=== PATIENT | female | born 1980 | race Hispanic/Latino ===

== ENCOUNTER 2018-06-05 08:12 | Emergency (ER) | payer BC ==
[2018-06-05 08:39] LABS: APPEARANCE,URINE Clear (CLEAR); BILIRUBIN,URINE Negative (NEGATIVE); COLOR,URINE Yellow (YELLOW); GLUCOSE, URINE (UA) Negative (NEGATIVE); KETONES,URINE Negative (NEGATIVE); LEUKOCYTE ESTERASE ,URINE Moderate (NEGATIVE); NITRATE,URINE Negative (NEGATIVE); OCCULT BLOOD,URINE Negative (NEGATIVE); PH,URINE 6.5 (5.0-8.0); PROTEIN,URINE Negative (NEGATIVE); UROBILINOGEN,URINE 0.2 mg/dL (0.2-1.0)
[2018-06-05 08:46] LABS: BACTERIA,URINE Rare /HPF (None Seen); RBC,URINE 0-1 /HPF (0-1); SQUAMOUS EPITHELIAL CELL,UR Rare /HPF (0-2)
[2018-06-05 09:07] LABS: BASOPHILS % (AUTO) 0.3 % (0.0-5.0); EOSINOPHILS % (AUTO) 0.3 % (0.0-8.0); HEMATOCRIT 39.4 % (36-48); LYMPHOCYTES % (AUTO) 18.5 % (21.0-51.0); MEAN CORPUSCULAR HEMOGLOBIN 31.5 pg (27.0-33.0); MEAN CORPUSCULAR HGB CONC 34.6 g/dL (32.0-36.0); MEAN CORPUSCULAR VOLUME 91.1 fL (79-99); MONOCYTES % (AUTO) 4.9 % (3.0-13.0); PLATELET COUNT (AUTO) 208 K/uL (130-400); RED BLOOD CELL COUNT(AUTO) 4.33 MIL/uL (4.00-5.50); RED CELL DISTRIBUTION WIDTH 12.7 % (11.0-15.5); WHITE BLOOD COUNT (AUTO) 11.9 K/uL (4.8-10.8)
[2018-06-05 09:22] LABS: CREATININE 0.7 mg/dL (0.5-1.5); POTASSIUM 3.5 mmol/L (3.5-5.1)
[2018-06-05 09:29] LABS: ALBUMIN 3.3 g/dL (3.5-5.0); BILIRUBIN,TOTAL 0.6 mg/dL (0.2-1.0); TOTAL PROTEIN, SERUM 6.3 g/dL (6.0-8.3)
[2018-06-05] MEDS ORDERED: METOCLOPRAMIDE 10 MG/2 ML VIAL ONE (09:51)
[2018-06-05] MEDS ORDERED: SODIUM CHLORIDE 0.9% 1000ML 1,000 ML IV ONE (09:52)
[2018-06-05] MEDS ORDERED: ONDANSETRON HCL 4 MG/2 ML VIAL ONE (09:52)
[2018-06-05 10:08] LABS: INR 0.94 (0.85-1.15); PARTIAL THROMBOPLASTIN TIME 28.5 SEC (26.3-35.5); PROTHROMBIN TIME 9.9 SEC (9.6-11.6)
[2018-06-05] MEDS ORDERED: METRONIDAZOLE 500MG/100ML BAG 100 ML ONE (12:21)
[2018-06-05] MEDS ORDERED: MORPHINE SULFATE 2 MG/ML 1ML SYG ONE (12:22)
[2018-06-05] MEDS ORDERED: KETOROLAC TROMETHAMINE 30MG/ML ONE (13:04)
== END 2018-06-05 14:28 | disposition home or self-care (01) ==
LOC: EDH 08:12
DX: K57.92 Diverticulitis of intestine, part unspecified, without perforation or abscess without bleeding (principal); K92.1 Melena; R19.7 Diarrhea, unspecified; Z90.710 Acquired absence of both cervix and uterus; Z72.0 Tobacco use
CPT/HCPCS: 36415; 74176; 80053; 81001; 83690; 85025; 85610; 85730; 96361; 96365; 96375; 99285; J1885; J2405; J2765; J3490; J7030

== ENCOUNTER 2020-08-05 17:38 | Emergency (ER) | payer BC ==
[2020-08-05 18:13] LABS: BASOPHILS % (AUTO) 0.3 % (0.0-5.0); EOSINOPHILS % (AUTO) 0.1 % (0.0-8.0); HEMATOCRIT 39.5 % (36-48); LYMPHOCYTES % (AUTO) 14.8 % (21.0-51.0); MEAN CORPUSCULAR HEMOGLOBIN 31.3 pg (27.0-33.0); MEAN CORPUSCULAR HGB CONC 34.4 g/dL (32.0-36.0); NEUTROPHILS % (AUTO) 78.2 % (40.0-77.0); PLATELET COUNT (AUTO) 233 K/uL (130-400); RED BLOOD CELL COUNT(AUTO) 4.34 MIL/uL (4.00-5.50); RED CELL DISTRIBUTION WIDTH 11.9 % (11.0-15.5); WHITE BLOOD COUNT (AUTO) 10.8 K/uL (4.8-10.8)
[2020-08-05 18:15] LABS: APPEARANCE,URINE Clear (CLEAR); BILIRUBIN,URINE Negative (NEGATIVE); COLOR,URINE Yellow (YELLOW); GLUCOSE, URINE (UA) Negative (NEGATIVE); KETONES,URINE Negative (NEGATIVE); LEUKOCYTE ESTERASE ,URINE Negative (NEGATIVE); NITRATE,URINE Negative (NEGATIVE); OCCULT BLOOD,URINE Negative (NEGATIVE); PH,URINE 6.5 (5.0-8.0); PROTEIN,URINE Negative (NEGATIVE); UROBILINOGEN,URINE 0.2 mg/dL (0.2-1.0)
[2020-08-05 18:16] LABS: HCG,QUAL RESULT NEGATIVE (NEGATIVE)
[2020-08-05 18:21] LABS: CREATININE 0.8 mg/dL (0.5-1.5); POTASSIUM 3.4 mmol/L (3.5-5.1)
[2020-08-05 18:28] LABS: ALBUMIN 3.5 g/dL (3.5-5.0); BILIRUBIN,TOTAL 0.7 mg/dL (0.2-1.0); TOTAL PROTEIN, SERUM 7.2 g/dL (6.0-8.3)
[2020-08-05] MEDS ORDERED: ONDANSETRON HCL 4 MG/2 ML VIAL ONE (19:07)
[2020-08-05] MEDS ORDERED: SODIUM CHLORIDE 0.9% 1000ML 1,000 ML IV ONE (19:07)
[2020-08-05] MEDS ORDERED: ACETAMINOPHEN EXTRA STRENGTH 500 MG TABLET ONE (19:07)
[2020-08-05] MEDS ORDERED: MORPHINE SULFATE 4 MG/1ML SYG ONE (19:08)
[2020-08-05 19:47] LABS: RAPID GROUP A STREP NEGATIVE (NEGATIVE)
[2020-08-05] MEDS ORDERED: IOHEXOL-350 75 ML VIAL IV ONE (20:03)
[2020-08-05] MEDS ORDERED: METRONIDAZOLE 500 MG TABLET ONE (22:18)
[2020-08-05] MEDS ORDERED: DiphenhydrAMINE HCL 50 MG/ML VIAL ONE (22:18)
[2020-08-05] MEDS ORDERED: LEVOFLOXACIN 750 MG/D5W 150 ML 150 ML ONE (22:18)
[2020-08-05] MEDS ORDERED: KETOROLAC TROMETHAMINE 30MG/ML ONE (22:18)
[2020-08-05] MEDS ORDERED: METOCLOPRAMIDE 10 MG/2 ML VIAL ONE (22:31)
== END 2020-08-05 23:40 | disposition home or self-care (01) ==
LOC: EDH 17:38
DX: K57.32 Diverticulitis of large intestine without perforation or abscess without bleeding (principal); R50.9 Fever, unspecified; R11.2 Nausea with vomiting, unspecified; Z20.828 Contact with and (suspected) exposure to other viral communicable diseases; Z90.710 Acquired absence of both cervix and uterus
CPT/HCPCS: 36415; 74177; 80053; 81003; 81025; 83690; 84484; 85025; 87426; 87804 ×2; 87880; 93005; 96361; 96365; 96375; 99285; J1200; J1885; J1956; J2270; J2405; J2765; J7030; Q9967

== ENCOUNTER 2021-01-24 13:16 | Emergency (ER) | payer BC ==
[2021-01-24] MEDS ORDERED: ONDANSETRON HCL 4 MG/2 ML VIAL ONE (13:58)
[2021-01-24] MEDS ORDERED: MORPHINE SULFATE 4 MG/1ML SYG ONE (13:59)
[2021-01-24] MEDS ORDERED: SODIUM CHLORIDE 0.9% 1000ML 1,000 ML IV ONE (13:59)
[2021-01-24 14:03] LABS: BASOPHILS % (AUTO) 0.2 % (0.0-5.0); EOSINOPHILS % (AUTO) 0.2 % (0.0-8.0); LYMPHOCYTES % (AUTO) 9.4 % (21.0-51.0); MEAN CORPUSCULAR HEMOGLOBIN 30.1 pg (27.0-33.0); MEAN CORPUSCULAR HGB CONC 32.8 g/dL (32.0-36.0); MEAN CORPUSCULAR VOLUME 91.9 fL (79-99); MONOCYTES % (AUTO) 5.9 % (3.0-13.0); NEUTROPHILS % (AUTO) 83.9 % (40.0-77.0); PLATELET COUNT (AUTO) 288 K/uL (130-400); RED BLOOD CELL COUNT(AUTO) 4.68 MIL/uL (4.00-5.50); RED CELL DISTRIBUTION WIDTH 12.3 % (11.0-15.5); WHITE BLOOD COUNT (AUTO) 16.6 K/uL (4.8-10.8)
[2021-01-24] MEDS ORDERED: IOHEXOL 350 MG/ML 100ML INFUS..BTL IV ONE (14:13)
[2021-01-24 14:14] LABS: APPEARANCE,URINE Clear (CLEAR); BILIRUBIN,URINE Negative (NEGATIVE); COLOR,URINE Yellow (YELLOW); GLUCOSE, URINE (UA) Negative (NEGATIVE); KETONES,URINE Negative (NEGATIVE); LEUKOCYTE ESTERASE ,URINE Small (NEGATIVE); NITRATE,URINE Positive (NEGATIVE); OCCULT BLOOD,URINE Negative (NEGATIVE); PH,URINE 6.5 (5.0-8.0); PROTEIN,URINE Negative (NEGATIVE)
[2021-01-24 14:22] LABS: HCG,QUAL RESULT NEGATIVE (NEGATIVE)
[2021-01-24 14:25] LABS: BACTERIA,URINE Moderate /HPF (None Seen); RBC,URINE 0-1 /HPF (0-1); SQUAMOUS EPITHELIAL CELL,UR Few /HPF (0-2)
[2021-01-24 14:28] LABS: ALBUMIN 3.6 g/dL (3.5-5.0); BILIRUBIN,TOTAL 0.6 mg/dL (0.2-1.0); CREATININE 0.7 mg/dL (0.5-1.5); POTASSIUM 3.7 mmol/L (3.5-5.1); TOTAL PROTEIN, SERUM 7.1 g/dL (6.0-8.3)
[2021-01-24] MEDS ORDERED: METRONIDAZOLE 500 MG TABLET ONE (14:58)
[2021-01-24] MEDS ORDERED: FENTANYL CITRATE PF 50 MCG/1 ML 2ML VIAL ONE (14:59)
== END 2021-01-24 15:18 | disposition home or self-care (01) ==
LOC: EDH 13:16
DX: K57.32 Diverticulitis of large intestine without perforation or abscess without bleeding (principal); Z20.822 Contact with and (suspected) exposure to COVID-19; Z87.891 Personal history of nicotine dependence; Z79.899 Other long term (current) drug therapy
CPT/HCPCS: 36415; 71045; 74177; 80053; 81001; 81025; 83605; 83690; 84484; 85025; 87077; 87088; 87186; 87426; 93005; 96374; 96375; 96376; 99285; J2270; J2405; J3010; J7030; Q9967; U0003

== ENCOUNTER 2021-08-26 14:05 | Emergency (ER) | payer BC, OTHER ==
[~2021-08-26] VITALS: Ht 147.3 cm; Wt 61.2 kg
[2021-08-26 16:35] VITALS: BP 139/89
[2021-08-26] MEDS ORDERED: IBUPROFEN 600 MG TABLET ONE (18:42)
[2021-08-26] MEDS ORDERED: IBUP-2070 PO (18:42)
[2021-08-26] MEDS ORDERED: CYCLOBENZAPRINE HCL 10 MG TABLET ONE (18:42)
[2021-08-26] MEDS ORDERED: CYCL10TA16 PO (18:42)
[2021-08-26] MEDS ORDERED: CYCLOBENZAPRINE HCL 10 MG TABLET PO SCH (19:00)
[2021-08-26] MEDS ORDERED: IBUPROFEN 600 MG TABLET PO ONE (19:00)
== END 2021-08-26 19:03 | disposition home or self-care (01) ==
LOC: EDH 14:05
DX: S16.1XXA Strain of muscle, fascia and tendon at neck level, initial encounter (principal); Z79.1 Long term (current) use of non-steroidal anti-inflammatories (NSAID); X58.XXXA Exposure to other specified factors, initial encounter; Y93.89 Activity, other specified; Y92.89 Other specified places as the place of occurrence of the external cause; Y99.8 Other external cause status

== ENCOUNTER 2021-08-29 12:42 | Emergency (ER) | payer OTHER ==
[~2021-08-29] VITALS: Ht 149.9 cm; Wt 63.5 kg
[~2021-08-29 12:42] MED LIST: CYCL10TA16 PO; IBUP-2070 PO
[2021-08-29] MEDS ORDERED: KETOROLAC 30MG VIAL (30MG/ML) ONE (13:00)
[2021-08-29] MEDS ORDERED: KETOROLAC 30MG VIAL (30MG/ML) IVP ONE (13:00)
[2021-08-29] MEDS ORDERED: ONDANSETRON 4MG INJ IVP ONE (13:00)
[2021-08-29 13:19] LABS: BASOPHILS % (AUTO) 0.5 % (0.0-5.0); HEMATOCRIT 40.6 % (36-48); LYMPHOCYTES % (AUTO) 24.9 % (21.0-51.0); MEAN CORPUSCULAR HEMOGLOBIN 31.5 pg (27.0-33.0); MEAN CORPUSCULAR HGB CONC 34.5 g/dL (32.0-36.0); MEAN CORPUSCULAR VOLUME 91.4 fL (79-99); MONOCYTES % (AUTO) 7.4 % (3.0-13.0); PLATELET COUNT (AUTO) 239 K/uL (130-400); RED BLOOD CELL COUNT(AUTO) 4.44 MIL/uL (4.00-5.50); RED CELL DISTRIBUTION WIDTH 12.3 % (11.0-15.5); WHITE BLOOD COUNT (AUTO) 8.2 K/uL (4.8-10.8)
[2021-08-29 13:21] LABS: APPEARANCE,URINE Clear (CLEAR); BILIRUBIN,URINE Negative (NEGATIVE); COLOR,URINE Yellow (YELLOW); GLUCOSE, URINE (UA) Negative (NEGATIVE); KETONES,URINE Negative (NEGATIVE); LEUKOCYTE ESTERASE ,URINE Moderate (NEGATIVE); NITRATE,URINE Negative (NEGATIVE); OCCULT BLOOD,URINE Negative (NEGATIVE); PROTEIN,URINE Negative (NEGATIVE)
[2021-08-29 13:25] LABS: CREATININE 0.8 mg/dL (0.5-1.5); POTASSIUM 3.7 mmol/L (3.5-5.1)
[2021-08-29] MEDS: ONDANSETRON 4MG INJ ONE (13:29)
[2021-08-29 13:30] LABS: ALBUMIN 3.7 g/dL (3.5-5.0); BILIRUBIN,TOTAL 0.5 mg/dL (0.2-1.0)
[2021-08-29 13:34] LABS: BACTERIA,URINE Many /HPF (None Seen); MUCUS,URINE Few LPF (None Seen); RBC,URINE 0-1 /HPF (0-1)
[2021-08-29] MEDS ORDERED: CEFTRIAXONE 1G VIAL ONE (13:46)
[2021-08-29] MEDS ORDERED: PHENAZOPYRIDINE HCL 200 MG TABLET ONE (13:46)
[2021-08-29] MEDS ORDERED: CEFTRIAXONE 1G VIAL IVP ONE (14:00)
[2021-08-29] MEDS ORDERED: PHENAZOPYRIDINE HCL 200 MG TABLET PO ONE (14:00)
[2021-08-29] MEDS ORDERED: LEVO500T90 PO (14:22)
[2021-08-29] MEDS ORDERED: DICY20TA2 PO (14:22)
[2021-08-29] MEDS ORDERED: METR375C2 PO (14:22)
[2021-08-29 16:17] VITALS: BP 132/80
== END 2021-08-29 16:19 | disposition home or self-care (01) ==
LOC: EDH 12:42
DX: K57.30 Diverticulosis of large intestine without perforation or abscess without bleeding (principal); N39.0 Urinary tract infection, site not specified; Z79.1 Long term (current) use of non-steroidal anti-inflammatories (NSAID); Z90.710 Acquired absence of both cervix and uterus
CPT/HCPCS: 36415; 74176; 80053; 81001; 83690; 84484; 85025; 87077; 87088; 87186; 96374; 96375; 99284; J0696; J1885; J2405

== ENCOUNTER 2024-12-28 18:43 | Emergency (ER) | payer SELFPAY ==
[~2024-12-28] VITALS: Ht 160 cm; Wt 62.6 kg
[~2024-12-28 18:43] MED LIST changes: +DICY20TA2 PO; +LEVO-70 PO; +METR375C2 PO
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
--- NOTE | 2024-12-28 19:50 | NUR ---
[facility] CALLED PRIOR TO ARRIVAL. INCIDENT HAPPEN IN [facility]
[2024-12-28] MEDS: AMOX/CLAV 875/125MG TAB PO ONE (19:59)
[2024-12-28] MEDS: ibuPROFEN 800 MG TAB PO ONE (20:00)
[2024-12-28] MEDS: NEOMY SULF/BACITRA/POLYMYXIN B 1 EACH PACKET TP ONE (20:00)
[2024-12-28] MEDS: LIDOCAINE HCL 1% 20 ML VIAL INJ SCH (20:01)
[2024-12-28] MEDS: teTANUS/diphthERIA TOXOID [ADULT] 0.5 ML VIAL IM ONE (20:06)
[2024-12-28] MEDS ORDERED: AMOX1TAB16 PO (20:23)
[2024-12-28] MEDS ORDERED: MUPI22O TP (20:23)
[2024-12-28] MEDS ORDERED: IBUP-2070 PO (20:23)
[2024-12-28 20:46] VITALS: BP 143/89; PULSE 80; RESP 18; TEMP 98.2; O2SAT 97
== END 2024-12-28 20:56 | disposition home or self-care (01) ==
LOC: EDH 18:43
DX: S61.012A Laceration without foreign body of left thumb without damage to nail, initial encounter (principal); S61.412A Laceration without foreign body of left hand, initial encounter; Z90.710 Acquired absence of both cervix and uterus; W54.0XXA Bitten by dog, initial encounter; Y93.89 Activity, other specified; Y92.89 Other specified places as the place of occurrence of the external cause; Y99.8 Other external cause status
CPT/HCPCS: 12002; 90471; 90714; 99284